=== PATIENT | male | born 1990 | race Caucasian/White ===

== ENCOUNTER 2024-12-18 13:55 | Outpatient (CLI) | payer OTHER, SELFPAY ==
--- NOTE | ~2024-12-18 | XR_ITS ---
CHEST RADIOGRAPH, PA AND LATERAL CLINICAL HISTORY: R05.9 - Cough, unspecified . COMPARISON: 10/03/2004 TECHNIQUE: PA and lateral views of the chest. FINDINGS The cardiomediastinal silhouette is unremarkable. The lungs are clear. Visualized osseous structures and soft tissues are unremarkable. IMPRESSION: No focal infiltrate or effusion. Reviewed, dictated and finalized at location A.
== END 2024-12-18 13:56 | disposition home or self-care (01) ==
LOC: MICIMG 13:57
PROVIDERS: PCP Family Medicine
DX: R05.9 Cough, unspecified (principal); R68.83 Chills (without fever); R53.83 Other fatigue
CPT/HCPCS: 71046